=== PATIENT | female | born 2000 | race Two or more races ===

== ENCOUNTER 2023-11-04 01:14 | Emergency (ER) | payer OTHER ==
[~2023-11-04] VITALS: Ht 170.2 cm; Wt 46.7 kg
== END 2023-11-04 03:46 | disposition home or self-care (01) ==
LOC: ER 01:15
DX: H92.02 Otalgia, left ear (principal)

== ENCOUNTER 2024-09-22 12:53 | Emergency (ER) | payer OTHER ==
[~2024-09-22] VITALS: Ht 170.2 cm; Wt 49.9 kg
[2024-09-22] MEDS ORDERED: ACETAMINOPHEN 500 MG GEL..CAP PO ONE (13:45)
[2024-09-22 14:14] LABS: HEMATOCRIT 43.5 % (36.0-45.00); HEMOGLOBIN 14.4 g/dL (12.0-15.00); MEAN CELL VOLUME 86.2 fL (80.00-100.00); MEAN CORPUSCULAR HEMOGLOBIN 28.6 pg (27.00-32.0); MEAN CORPUSCULAR HGB CONC 33.1 g/dl (32.0-36.0); PLATELET COUNT 186 K/uL (150-450); RED BLOOD COUNT 5.05 M/uL (4.00-6.00); RED CELL DISTRIBUTION WIDTH 13.6 % (11.5-14.5)
== END 2024-09-22 15:34 | disposition home or self-care (01) ==
LOC: ER 12:55
PROVIDERS: General Practice
DX: J06.9 Acute upper respiratory infection, unspecified (principal); Z20.822 Contact with and (suspected) exposure to COVID-19